=== PATIENT | male | born 1965 | race Caucasian/White ===

== ENCOUNTER 2020-06-15 17:58 | Emergency (ER) | payer SELFPAY ==
[2020-06-15 17:59] VITALS: BP 195/121; PULSE 80; RESP 17; TEMP 36.2; O2SAT 98; BMI 39.8
--- NOTE | 2020-06-15 18:02 | EKG12_ITS ---
Test Reason : HTN Blood Pressure : / mmHG Vent. Rate : 081 BPM Atrial Rate : 081 BPM P-R Int : 170 ms QRS Dur : 112 ms QT Int : 374 ms P-R-T Axes : 055 008 043 degrees QTc Int : 434 ms Normal sinus rhythm Nonspecific ST abnormality Abnormal ECG Confirmed by STACIA SURESH, BALTAZAR ([id number]), production editor RAE PACKER ([id number]) on 06/16/2020 12:50:05 PM Referred By: TOÑA/CHARITO Confirmed By:BALTAZAR PALOMO MD
--- NOTE | 2020-06-15 18:11 | NURSING ---
NO OLD EKGS
--- NOTE | 2020-06-15 18:20 | RAD_ITS ---
HISTORY: chest pain XR Chest 1 View TECHNIQUE: Single frontal view of chest. # of images incl. paperwork: 1 COMPARISON: None. FINDINGS: LINES: None. CARDIOVASCULAR STRUCTURES: Normal cardiomediastinal silhouette. Pulmonary vasculature appears normal. LUNGS: No confluent areas of acute consolidation. PLEURA: No pleural effusions or pneumothorax. BONES: No acute osseous abnormality of the thorax. RAD/Chest 1 View (Portable) IMPRESSION: 1. No acute cardiopulmonary disease. at 1902 Reported and signed by: Renato Zhang MD Electronically Signed: Renato Zhang MD at 19:01 EDT Tel , Service support ,
[2020-06-15 19:06] LABS: Absolute Lymphocyte Count 2.92 X10^3/uL (0.83-4.51); Absolute Neutrophil Count 5.6 X10^3/uL (2.0-7.7); Basophil# 0.03 X10^3/uL; Basophil% 0.3 % (0-1); Eosinophil# 0.17 X10^3/uL; Eosinophils% 1.8 % (0-5); Hematocrit 49.3 % (40-54); Hemoglobin 16.3 g/dL (13.0-16.5); Lymphocyte # 2.92 X10^3/ul (4.0); Lymphocyte % 30.4 % (19-41); Mean Corp Hgb Conc 33.1 g/dL (32-36); Mean Corpuscular Hgb 29.3 pg (27.0-32.0); Mean Corpuscular Volume 88.5 fL (80-94); Mean Platelet Vol. 9.6 fl (6.2-12.0); Monocyte# 0.87 X10^3/uL; Monocyte% 9.1 % (0-10); NRBC Flagged by Analyzer 0 % (0-5); Neutrophil # 5.57 X10^3/uL (2.7-7.7); Platelet Count 237 K/mm3 (150-450); RBC Distribution Width CV 13.2 % (11.6-14.6); Red Blood Count 5.57 M/mm3 (4.6-6.2); White Blood Count 9.6 K/mm3 (4.4-11.0)
[2020-06-15 19:15] LABS: Anion Gap 6 (5-15); BUN 14 mg/dL (7-18); Calcium,Total 8.9 mg/dL (8.5-10.1); Chloride 104 mmol/L (98-107); Creatinine, Serum 0.87 mg/dL (0.70-1.30); EST Glomerular Filtration Rate 97 mL/min (>60); Est Glom Filt Rate - Afr Amer 117 mL/min (>60); Estimated Creatinine Clearance 100.22 ml/min; Glucose 91 mg/dL (74-106); Potassium 3.9 mmol/L (3.5-5.1); Sodium Level 137 mmol/L (136-145)
[2020-06-15 19:16] VITALS: BP 178/98; PULSE 77; RESP 18
--- NOTE | 2020-06-15 19:36 | ED.DCSUM_ITS ---
- ER Visit Summary Date of Service: 06/15/20 Chief Complaint: [High blood pressure] History of Present Illness: The patient is a 54 M [presents to the emergency department complaint of high blood pressure for several weeks. Patient states that he normally does not go to the doctor. In the past when he checked it from time to time it was in the 130s to 140 systolic but lately has been in the 1 70-1 80 systolic. Patient complains of fatigue and lack of energy at times and falls asleep easily in the afternoons. Today he developed some mild discomfort in the left side of his neck just small twinges lasting seconds and then he also had a similar twinge on the right side of his neck as well. He denies any chest pain or shortness of breath. He denies exertional dyspnea. Patient denies recent illness. His father had MIs in his 60s. Patient does not take any medication currently. Patient was seen at urgent care and was referred to the emergency department. He was scheduled to follow-up with a nurse practitioner tomorrow in the office.] Physical Examination: [HEENT-PERRLA, EOMI. Cranial nerves II through XII grossly intact. TMs clear. Mucous membranes moist. No adenopathy. Cardiovascular-regular rate and rhythm without murmur or ectopy Lungs-clear to auscultation, chest wall stable without crepitus or subcu emphysema Abdomen-normoactive bowel sounds, soft, nontender, no rebound or rigidity, no peritoneal signs. Extremities-intact ?4, normal range of motion, normal pulses, atraumatic] Test Results: [EKG obtained arrival shows sinus rhythm with a ventricular rate of 81 bpm with no significant ST changes noted. CBC with differential obtained was normal. Chemistries normal. Troponin was less than 0.015. Glucose was normal at 91. Chest x-ray 1 view obtained interpreted by myself as no acute disease process. Radiology in agreement.] Emergency Department Course and Treatment: [Patient was given Norvasc 5 mg p.o.] Treatment Plan: [At this point we will start patient on Norvasc. I advised him to keep a journal of his blood pressures over the next week. Patient is advised to return if chest pain, shortness of breath, exertional dyspnea, or condition should worsen anyway. Based on his age I feel he needs follow-up with primary care for baseline blood work including cholesterol and possibly outpatient stress testing based on his age and complaint of increased fatigue.] Disposition: [Discharged home in stable condition] Impression: [Hypertension] This note was generated with [employer] dictation software. It may contain incorrect words, spelling, and punctuation that were not noted in review of the chart prior to signing ED Disposition - Plan for ED Patient: Referrals: NOT,DEFINED [Primary Care Provider] -
--- NOTE | 2020-06-15 19:39 | DCINST.ED_ITS ---
ED Disposition - Plan for ED Patient: Instructions: ED Hypertension, New (Begin Treatment) Prescriptions: Amlodipine [Norvasc] 5 mg PO DAILY #30 tablet Transmission Status: Pending to [facility]30 Referrals: NOT,DEFINED [Primary Care Provider] - Richard Oviedo III, MD [STAFF PHYSICIAN] - 5-7 Days
[2020-06-15] MEDS: amLODIPine 5 MG Tablet PO (19:43)
[2020-06-15 20:14] VITALS: BP 175/98; PULSE 68; RESP 18; O2SAT 97
== END 2020-06-15 20:19 | disposition home or self-care (01) ==
PROVIDERS: Emergency Provider Emergency Medicine
DX: I10 Essential (primary) hypertension (principal)
CPT/HCPCS: 71045; 80048; 84484; 85025; 93005; 99285; A4216